=== PATIENT | female | born 1950 | race Caucasian/White ===

== ENCOUNTER → 2019-06-28 | Outpatient (CLI) | payer MEDICARE ==
--- NOTE | 2019-06-28 17:07 | Diagnostic Imaging Report ---
INDICATION: Fall with right rib pain. TIME OF EXAM: 01:36 p.m. FINDINGS: Multiple views of right ribs were obtained. No displaced rib fracture is identified. No parenchymal contusion, effusion, or pneumothorax is seen. IMPRESSION: No acute feature identified. Dictated by: Dictated on workstation # [id number]
== END ==
LOC: RAD FS 13:04
PROVIDERS: ATTEND Emergency Medicine
DX: S20.221A Contusion of right back wall of thorax, initial encounter (principal); W19.XXXA Unspecified fall, initial encounter
CPT/HCPCS: 71100

== ENCOUNTER → 2019-12-07 | Outpatient (CLI) | payer MEDICARE, OTHER ==
--- NOTE | 2019-12-07 10:44 | Diagnostic Imaging Report ---
INDICATION: Preop exam for right shoulder replacement surgery. Time of exam: 10:23 AM No prior studies are available for comparison. The heart size is normal. The lungs are clear. The pulmonary vascularity is normal. No infiltrates are seen. There is no effusion or pneumothorax. IMPRESSION: No acute cardiopulmonary process is detected. Dictated by: Dictated on workstation # [id number]
== END ==
LOC: RAD FS 10:16
PROVIDERS: ATTEND Emergency Medicine
DX: Z01.818 Encounter for other preprocedural examination (principal)
CPT/HCPCS: 71046

== ENCOUNTER → 2019-12-17 | Outpatient (CLI) | payer MEDICARE, OTHER | LOC: LAB FS 07:45 | PROVIDERS: ATTEND Orthopaedic Surgery | DX: S46.011D Strain of muscle(s) and tendon(s) of the rotator cuff of right shoulder, subsequent encounter (principal); M19.012 Primary osteoarthritis, left shoulder; M75.21 Bicipital tendinitis, right shoulder; M25.512 Pain in left shoulder; Z20.828 Contact with and (suspected) exposure to other viral communicable diseases | CPT/HCPCS: 87635 ==

== ENCOUNTER 2019-12-22 02:43 | Emergency (ER) | payer MEDICARE, OTHER ==
[~2019-12-22] VITALS: Ht 160 cm; Wt 68.1 kg
--- OUTSIDE RECORDS SUMMARY | 2019-12-22 02:48 | XMS REPORT | Continuity of Care Document ---
Author Organization Unknown Address Unknown Phone Unavailable Allergies Active Description Code Type Severity Reaction Onset Reported/Identified Relationship to Patient Clinical Status Yes Monistat 1 Drug Allergy 08/09/2012 Medications There is no data. Problems Date Dx Coded Attending Type Code Diagnosis Diagnosed By 08/09/2012 FRANKI OCHOA DO 244.9 HYPOTHYROIDISM 08/09/2012 FRANKI OCHOA DO V58.69 LONG-TERM (CURRENT) USE OF OTHER MEDICATIONS 08/09/2012 FRANKI OCHOA DO V70.0 ROUTINE GENERAL MEDICAL EXAMINATION AT A HEALTH CARE FACILITY 07/21/2019 KELL WHITTINGTON DO Ot S20.221A CONTUSION OF RIGHT BACK WALL OF THORAX, 07/21/2019 KELL WHITTINGTON DO Ot W19.XXXA UNSPECIFIED FALL, INITIAL ENCOUNTER 12/07/2019 KELL WHITTINGTON DO Ot S20.221A CONTUSION OF RIGHT BACK WALL OF THORAX, 12/07/2019 KELL WHITTINGTON DO Ot W19.XXXA UNSPECIFIED FALL, INITIAL ENCOUNTER 12/09/2019 KELL WHITTINGTON DO Ot Z01.818 ENCOUNTER FOR OTHER PREPROCEDURAL EXAMIN 12/19/2019 FRANCIS NOVOA DO, Ot M19.012 PRIMARY OSTEOARTHRITIS, LEFT SHOULDER 12/19/2019 FRANCIS NOVOA DO, Ot M25.512 PAIN IN LEFT SHOULDER 12/19/2019 FRANCIS NOVOA DO Ot M75.21 BICIPITAL TENDINITIS, RIGHT SHOULDER 12/19/2019 FRANCIS NOVOA DO, Ot S46.011D STRAIN OF MUSC/TEND THE ROTATOR CUFF OF 12/19/2019 FRANCIS NOVOA DO, Ot Z20.828 CONTACT W AND EXPOSURE TO OTH VIRAL COMM 12/21/2019 FRANCIS NOVOA DO, Ot M19.012 PRIMARY OSTEOARTHRITIS, LEFT SHOULDER 12/21/2019 FRANCIS NOVOA DO, Ot M25.512 PAIN IN LEFT SHOULDER 12/21/2019 FRANCIS NOVOA DO Ot M75.21 BICIPITAL TENDINITIS, RIGHT SHOULDER 12/21/2019 FRANCIS NOVOA DO Ot S46.011D STRAIN OF MUSC/TEND THE ROTATOR CUFF OF 12/21/2019 FRANCIS NOVOA DO Ot Z20.828 CONTACT W AND EXPOSURE TO OTH VIRAL COMM Procedures Code [place] [address] ROUT INE VENIPUNCTURE 08/09/2012 14102 URIN E DRUG SCREEN (IN-HOUSE) 08/09/2012 76562 CBC 08/09/2012 46756 CMP 08/09/20125409188 GF R CALC (RESULT ONLY) 08/09/2012 76342 TSH 08/09/2012 Results Test Result Range Coronavirus SARS-CoV-2 SO 2018 - 0 07:50 Coronavirus Ab [Units/volume] in Serum Negative Negative Encounters ACCT No. Visit Date/Time Discharge Status Pt. Type Provider Facility Loc./Unit Complaint [id number] 08/09/2012 12:49:00 08/09/2012 23:59: 59 CLS Outpatient DON FRANKI Schmitz [id number] 12/17/2019 07:45:00 020 23:59:59 CLS Outpatient FRANCIS NOVOA DO [facility] [place] [id number] 12/07/2019 10:16:00 020 23:59:59 CLS Outpatient KELL WHITTINGTON DO [facility] RAD FS ENCOUNTER FOR O THER PREPROCEDURE EXAM [id number] 06/28/2019 13:04:00 020 23:59:59 CLS Outpatient KELL WHITTINGTON DO [facility] RAD FS S20.221A W.19.X XXA [id number] 12/22/2019 02:45:[address] Emergency MAGDALENA JI DO [facility] ER FS (L) SIDE HIP PAIN
[2019-12-22] MEDS ORDERED: fentaNYL INJECTION 100 MCG/2 ML AMP IVP ONE (03:15)
[2019-12-22] MEDS ORDERED: ONDANSETRON 4 MG/2 ML (SDV) Z0FRAN IVP ONE (03:15)
--- NOTE | 2019-12-22 04:12 | ED General ---
General Chief Complaint: Trauma-Non Activation Stated Complaint: (L) SIDE HIP PAIN Nursing Triage Note: FALL AT HOME. LEFT HIP PAIN Nursing Sepsis Screen: No Definite Risk Exam Limitations: No Limitations History of Present Illness Date Seen by Provider: Dec 22, 2019 Time Seen by Provider: 02:40 Initial Comments Patient is a 67-year-old female who underwent right shoulder surgery/replacement in [place] by [facility] 2 days ago who is subsequently released from the hospital yesterday and presents with accidental fall from standing with left pelvis pain. Patient states she took sleep medication prior to bedtime and awoke on her porch floor. Patient has history of sleepwalking. Denies hitting head, headache, neck pain. Patient is not on anticoagulation therapy. Denies right shoulder injury or change in postoperative pain pattern. No other injuries or complaints. Patient has no knowledge of medical symptoms prior to falling injury and was ambulatory at home. Timing/Duration: 1/2 Hour Severity: Moderate Modifying Factors: improves with Movement Associated Systoms: Denies Symptoms Allergies and Home Medications Allergies Coded Allergies: acetaminophen (Verified Allergy, Unknown, 12/22/19) miconazole (Verified Allergy, Unknown, 12/22/19) morphine (Verified Allergy, Unknown, 12/22/19) oxycodone (Verified Allergy, Unknown, 12/22/19) Patient Home Medication List Home Medication List Reviewed: Yes Review of Systems Review of Systems Constitutional: see HPI EENTM: see HPI Respiratory: see HPI Cardiovascular: see HPI Genitourinary: see HPI Musculoskeletal: see HPI Skin: see HPI Psychiatric/Neurological: See HPI Past Nccqiaa-Sbndpe-Wltixt Hx Past Med/Social Hx: Reviewed Nursing Past Med/Soc Hx Patient Social History Alcohol Use: Denies Use Recreational Drug Use: No Smoking Status: Never a Smoker 2nd Hand Smoke Exposure: No Recent Foreign Travel: No Contact w/Someone Who Travel: No Recent Infectious Disease Expo: No Recent Hopitalizations: Yes Physical Abuse: No Sexual Abuse: No Mistreated: No Fear: No Seasonal Allergies Seasonal Allergies: Yes Past Medical History Surgeries: Yes (LEFT MASTECTOMY, RIGHT SHOULDER) Orthopedic Respiratory: No Cardiac: Yes Hypertension Neurological: No Genitourinary: No Gastrointestinal: Yes Hemorrhoids Musculoskeletal: No Endocrine: No HEENT: Yes Cataract Loss of Vision: Denies Hearing Impairment: Denies Cancer: Yes Breast What Type of Treatment Did You: Surgical Intervention Psychosocial: No Integumentary: No Blood Disorders: No Physical Exam Vital Signs Vital Signs - First Documented 12/22/19 02:48 Temp 37.1 Pulse 88 Resp 17 B/P (MAP) 139/80 (99) O2 Delivery Room Air Capillary Refill : Less Than 3 Seconds Height, Weight, BMI Height: '" Weight: lbs. oz. kg; 26.00 BMI Method: General Appearance: Mild Distress Eyes: Bilateral Eye Normal Inspection, Bilateral Eye EOMI HEENT: PERRL/EOMI, Normal ENT Inspection, Pharynx Normal Neck: Full Range of Motion Respiratory: Lungs Clear Cardiovascular: Regular Rate, Rhythm Gastrointestinal: Non Tender, Soft Back: Normal Inspection, Other (left pelvis/hip pain/tenderness, no obvious deformity, rotation or shortening.) Extremity: Other Neurologic/Psychiatric: Alert, Oriented x3, No Motor/Sensory Deficits Skin: Normal Color Focused Exam Sepsis Stage: Ruled Out Progress/Results/Core Measures Suspected Sepsis Recent Fever Within 48 Hours: No Infection Criteria Present: None New/Unexplained Altered Menta: No Sepsis Screen: No Definite Risk SIRS Temperature: Pulse: 88 Respiratory Rate: 17 Blood Pressure 139 /80 Mean: 99 Results/Orders My Orders Orders - MAGDALENA JI DO Fentanyl Injection (Sublimaze Injection (12/22/19 03:15) Ondansetron Injection (Zofran Injectio (12/22/19 03:15) Hip 2-3 View Left (12/22/19 03:01) Ct Pelvis Wo (12/22/19 03:25) Medications Given in ED Current Medications Medications Dose Ordered Sig/Jorge Route Start Time Stop Time Status Last Admin Dose Admin Fentanyl Citrate 50 mcg ONCE ONCE IVP 12/22/19 03:15 12/22/19 03:17 DC 12/22/19 03:07 50 MCG Ondansetron HCl 4 mg ONCE ONCE IVP 12/22/19 03:15 12/22/19 03:17 DC 12/22/19 03:07 4 MG Vital Signs/I&O 12/22/19 02:48 Temp 37.1 Pulse 88 Resp 17 B/P (MAP) 139/80 (99) O2 Delivery Room Air Capillary Refill : Less Than 3 Seconds Blood Pressure Mean: 99 Departure Communication (Admissions) Left hip/pelvis: No obvious displaced fracture. CT pelvis: Possible nondisplaced sacral fracture Accidental fall from standing. Patient will require hospital admission if pelvic bone fracture. Otherwise, anticipate discharge home with supportive care watchful waiting and ortho follow up as scheduled Impression Primary Impression: Sacral fracture Disposition: 01 HOME, SELF-CARE Condition: Stable Departure-Patient Inst. Decision time for Depature: 04:36 Referrals: KELL WHITTINGTON DO (PCP/Family) Primary Care Physician Add. Discharge Instructions: X-ray and CTs were performed. The heft hip is intact. Nondisplaced sacral fracture appears to be present. Please continue current pain medications and follow-up with your orthopedic surgeon as scheduled. All discharge instructions reviewed with patient and/or family. Voiced understanding. MAGDALENA JI DO Dec 22, 2019 04:12
[2019-12-22 04:48] VITALS: BP 133/85
--- NOTE | 2019-12-22 06:29 | Diagnostic Imaging Report ---
PROCEDURE: CT pelvis without contrast. TECHNIQUE: Multiple contiguous axial images were obtained through the pelvis without the use of intravenous contrast. Sagittal and coronal reformations were performed. Auto Exposure Controls were utilized during the CT exam to meet ALARA standards for radiation dose reduction. INDICATION: Fall. Left hip and pelvic pain. COMPARISON: Hip radiographs performed earlier the same date. FINDINGS: Minimally displaced fracture seen involving the left inferior pubic ramus/ischium (image 46 series 2 and image 211 series 300). There is also subtle cortical irregularity involving the anterior aspect of the S3 level of the sacrum. No fracture is seen in the proximal left femur. Right total hip arthroplasty changes are visualized. No periprosthetic fracture seen. The bilateral SI joints are well aligned. The pubic symphysis demonstrates normal alignment. Views of the lumbar spine demonstrate chronic height loss at L4. There is grade 1 anterolisthesis of L4 on L5. No focal osseous lesions are seen in the pelvis. Included intra-abdominal and pelvic contents demonstrate no acute abnormalities. The urinary bladder is mildly distended. The surrounding soft tissues of the pelvis and hips are unremarkable. IMPRESSION: 1. Minimally displaced fracture involving the left inferior pubic ramus/ischium. 2. Cortical irregularity along the anterior aspect of the S3 level of the sacrum, concerning for nondisplaced fracture. Fracture involving the left inferior pubic ramus was added to the preliminary report. Findings were called to the emergency department at 6:25 AM on 12/22/[address] Derrek Guzman. Dictated by: Dictated on workstation # [id number]
--- NOTE | 2019-12-22 06:30 | Diagnostic Imaging Report ---
CLINICAL HISTORY: Fall. Left hip pain. COMPARISON: None. TECHNIQUE: 4 views of the pelvis and left hip. FINDINGS: Possible nondisplaced fracture is seen involving the inferior left pubic ramus. No fracture is seen involving the proximal left femur. Arthroplasty changes are noted on the right hip. The bilateral SI joints are well aligned. The pubic symphysis has a normal alignment. The surrounding soft tissues are unremarkable. A large amount of stool is seen in the colon. IMPRESSION: 1. Likely nondisplaced fracture involving the inferior left pubic ramus. Recommend CT of the pelvis to further evaluate. 2. Large amount of stool in the colon, likely representing constipation. Dictated by: Dictated on workstation # [id number]
== END 2019-12-22 04:48 | disposition home or self-care (01) ==
LOC: EDUNIT# 02:43 → ER FS 02:45
DX: S32.10XA Unspecified fracture of sacrum, initial encounter for closed fracture (principal); I10 Essential (primary) hypertension; Z88.6 Allergy status to analgesic agent; Z88.5 Allergy status to narcotic agent; Z88.8 Allergy status to other drugs, medicaments and biological substances; Z85.3 Personal history of malignant neoplasm of breast; W18.39XA Other fall on same level, initial encounter
CPT/HCPCS: 72192; 73502

== ENCOUNTER → 2020-09-24 | Outpatient (CLI) | payer MEDICARE, OTHER | LOC: LAB FS 10:00 | PROVIDERS: ATTEND Anesthesiology | DX: Z01.812 Encounter for preprocedural laboratory examination (principal); Z20.822 Contact with and (suspected) exposure to COVID-19 | CPT/HCPCS: 87635 ==

== ENCOUNTER → 2020-11-02 | Outpatient (CLI) | payer MEDICARE, OTHER | LOC: LAB FS 10:50 | PROVIDERS: ATTEND Anesthesiology | DX: Z01.812 Encounter for preprocedural laboratory examination (principal); Z20.822 Contact with and (suspected) exposure to COVID-19 | CPT/HCPCS: 87635 ==

== ENCOUNTER 2022-01-15 21:39 | Emergency (ER) | payer MEDICARE, OTHER ==
[~2022-01-15] VITALS: Ht 162.5 cm; Wt 58.9 kg
[2022-01-15] MEDS ORDERED: TETRACAINE 0.5% OPHTH SOLN 4 ML BTL (SINGLE DOSE ONLY) ONE (21:52)
[2022-01-15] MEDS ORDERED: FLUORESCEIN (FLUOR-I-STRIPS) 1 MG STRP ONE (21:52)
[2022-01-15] MEDS ORDERED: POLY/TRIMETH (POLYTRIM) OPHTH 10 ML BTL ONE (21:52)
--- NOTE | 2022-01-15 21:57 | ED EENT ---
History of Present Illness General Chief Complaint: Eye Problems Stated Complaint: EYES BURNING,SYNCOPAL EPISODE Nursing Triage Note: Pt reports she was showering and got her shampoo in her eyes for approx. 5 mintues. Attempted to flush with water and saline drops but reports no relief. Source: patient Exam Limitations: no limitations History of Present Illness Date Seen by Provider: Jan 15, 2022 Time Seen by Provider: 21:41 Initial Comments 71-year-old female that was showering earlier in her shampoo got in her eyes bilaterally, worse on the left. Attempted flushing it with water but has not had any relief. This occurred around 5 hours ago. She is having burning in her eyes left greater than right that is moderate, constant, burning, nothing really seems to make better or worse. She is otherwise denying any other acute complaints. Can still see without difficulty. Allergies and Home Medications Allergies Coded Allergies: acetaminophen (Verified Allergy, Unknown, 12/22/19) miconazole (Verified Allergy, Unknown, 12/22/19) morphine (Verified Allergy, Unknown, 12/22/19) oxycodone (Verified Allergy, Unknown, 12/22/19) Patient Home Medication List Home Medication List Reviewed: Yes Review of Systems Review of Systems Constitutional: No fever Eyes: Denies Blurred Vision; Pain Ears: Denies Dizziness Nose: no symptoms reported Mouth: no symptoms reported Throat: no symptoms reported Respiratory: no symptoms reported Cardiovascular: no symptoms reported Gastrointestinal: no symptoms reported Musculoskeletal: no symptoms reported Skin: no symptoms reported Neurological: No Symptoms Reported Hematologic/Lymphatic: No Symptoms Reported Immunological/Allergic: no symptoms reported All Other Systems Reviewed Negative Unless Noted: Yes Past Whtgrjz-Ulhgrx-Pncaal Hx Patient Social History Tobacco Use?: No Use of E-Cig and/or Vaping dev: No Substance use?: No Alcohol Use?: No Pt feels they are or have been: No Immunizations Up To Date First/Initial COVID19 Vaccinat: denies Seasonal Allergies Seasonal Allergies: Yes Past Medical History Surgeries: Yes (LEFT MASTECTOMY, RIGHT SHOULDER) Orthopedic Respiratory: No Cardiac: Yes Hypertension Neurological: No Genitourinary: No Gastrointestinal: Yes Hemorrhoids Musculoskeletal: No Endocrine: No HEENT: Yes Cataract Loss of Vision: Denies Hearing Impairment: Denies Cancer: Yes Breast What Type of Treatment Did You: Surgical Intervention Psychosocial: No Integumentary: No Blood Disorders: No Visual Acuity : Eye Location: Bilaterally Vision Acuity Degree: 20/20 Physical Exam Vital Signs Vital Signs - First Documented 01/15/22 21:40 Temp 36.7 Pulse 95 Resp 15 B/P (MAP) 160/88 (112) Pulse Ox 100 O2 Delivery Room Air Height, Weight, BMI Height: '" Weight: lbs. oz. kg; 22.00 BMI Method: General Appearance: WD/WN, no apparent distress Eyes: bilateral eye PERRL, bilateral eye EOMI, bilateral eye conjunctival inflammation, bilateral eye other (pH of both eyes is 7) Ears: bilateral ear auricle normal Nose: normal inspection Mouth/Throat: normal mouth inspection Neck: non-tender, full range of motion, supple, normal inspection Cardiovascular: regular rate, rhythm, no edema, no murmur Respiratory: chest non-tender, lungs clear, normal breath sounds, no respiratory distress, no accessory muscle use Gastrointestinal: normal bowel sounds, non tender, soft; No distended, No guarding, No rebound Neurologic/Psychiatric: no motor/sensory deficits, alert, normal mood/affect Skin: normal color, warm/dry Progress/Results/Core Measures Results/Orders My Orders Orders - DIANA PAULINO MD Trimethoprim/Polymyx Ophth Amita (Polytrim (01/15/22 22:00) Tetracaine 0.5% Ophth Amita Sdv (Tetracai (01/15/22 22:00) Fluorescein Strips (Svmoc-X-Aksydj) (01/15/22 22:00) Vital Signs/I&O 01/15/22 21:40 Temp 36.7 Pulse 95 Resp 15 B/P (MAP) 160/88 (112) Pulse Ox 100 O2 Delivery Room Air Blood Pressure Mean: 112 Progress Progress Note : Progress Note 71-year-old female with above history coming in due to eye burning pain. ABCs were intact and vitals were stable on presentation. Physical exam shows some conjunctival injection but normal visual acuity. I immediately took a pH of her eyes and both of them are 7. I then rinsed both eyes with saline until she was feeling better. Tetracaine was used as well as fluorescein and she does not have any defects or ulcerations. I believe she is stable for discharge with outpatient follow-up. She was sent home with strict return precautions Departure Impression Primary Impression: Chemical burn of right eye Additional Impression: Chemical burn of left eye Disposition: HOME, SELF-CARE Condition: Stable Departure-Patient Inst. Decision time for Depature: 22:10 Referrals: KELL WHITTINGTON DO (PCP/Family) Primary Care Physician Patient Instructions: Chemical Eye Injury ED Add. Discharge Instructions: Use the antibiotics 4 times a day for the next 5 days in each eye. Follow-up with an eye doctor in the next couple days if things are not improving. Work/School Note: Work Release Form Date Seen in the Emergency Department: Jan 15, 2022 Return to Work: Jan 17, 2022 Restrictions: No Restrictions DIANA PAULINO MD Jan 15, 2022 21:57
[2022-01-15] MEDS ORDERED: FLUORESCEIN (FLUOR-I-STRIPS) 1 MG STRP OU ONE (22:00)
[2022-01-15] MEDS ORDERED: TETRACAINE 0.5% OPHTH SOLN 4 ML BTL (SINGLE DOSE ONLY) OU ONE (22:00)
[2022-01-15] MEDS ORDERED: POLY/TRIMETH (POLYTRIM) OPHTH 10 ML BTL OU ONE (22:00)
[2022-01-15 22:08] VITALS: BP 160/88
== END 2022-01-15 22:08 | disposition home or self-care (01) ==
LOC: EDUNIT# 21:39 → ER FS 21:40
DX: T26.62XA Corrosion of cornea and conjunctival sac, left eye, initial encounter (principal); T26.61XA Corrosion of cornea and conjunctival sac, right eye, initial encounter; Z28.310 Unvaccinated for COVID-19
CPT/HCPCS: 99281